=== PATIENT | male | born 1955 | race Caucasian/White ===

== ENCOUNTER 2021-03-02 09:18 | Emergency (ER) | payer OTHER ==
--- NOTE | 2021-03-02 09:56 | EDM.PDOC ---
ED HPI GENERAL MEDICAL PROBLEM - General Chief Complaint: Lower Extremity Injury/Pain Stated Complaint: [id number] SWOLLEN LEFT LEG/ANKLE Time Seen by Provider: 03/02/21 09:52 Source of Information: Reports: Patient History Limitations: Reports: No Limitations - History of Present Illness INITIAL COMMENTS - FREE TEXT/NARRATIVE: 65 y/o M c/o L ankle and calf swelling since las night. He reports no pain, injury to the area. 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 No difficulty walking, no fever, cough, chills, drugs, etoh, CP, DB, adb pn, vsion prob, extremity pain - Related Data Allergies Allergy/AdvReac Type Severity Reaction Status Date / Time No Known Allergies Allergy Verified 03/02/21 09:32 Home Meds: Home Meds Omeprazole 20 mg PO DAILY 03/02/21 [History] lisinopriL [Lisinopril] 10 mg PO DAILY 03/02/21 [History] Past Medical History HEENT History: Reports: None Cardiovascular History: Reports: Hypertension Respiratory History: Reports: None Gastrointestinal History: Reports: GERD Genitourinary History: Reports: None Musculoskeletal History: Reports: None Neurological History: Reports: None Psychiatric History: Reports: None Endocrine/Metabolic History: Reports: None Hematologic History: Reports: None Immunologic History: Reports: None Oncologic (Cancer) History: Reports: None Dermatologic History: Reports: None - Infectious Disease History Infectious Disease History: Reports: None - Past Surgical History HEENT Surgical History: Reports: Tonsillectomy Cardiovascular Surgical History: Reports: None GI Surgical History: Reports: Cholecystectomy Social & Family History - Family History Family Medical History: No Pertinent Family History - Tobacco Use Tobacco Use Status *Q: Never Tobacco User Second Hand Smoke Exposure: No - Caffeine Use Caffeine Use: Reports: None - Recreational Drug Use Recreational Drug Use: No Review of Systems - Review of Systems Review Of Systems: Comprehensive ROS is negative, except as noted in HPI. ED EXAM, GENERAL - Physical Exam Exam: See Below General Appearance: Alert, No Apparent Distress Nose: Normal Inspection, Normal Mucosa, No Blood Throat/Mouth: Normal Inspection, Normal Lips, Normal Teeth, Normal Gums, Normal Oropharynx, Normal Voice, No Airway Compromise Head: Atraumatic, Normocephalic Neck: Normal Inspection, Supple, Non-Tender, Full Range of Motion Respiratory/Chest: No Respiratory Distress, Lungs Clear, Normal Breath Sounds, No Accessory Muscle Use, Chest Non-Tender Cardiovascular: Normal Peripheral Pulses, Regular Rate, Rhythm, No Edema, No Gallop, No JVD, No Murmur, No Rub Peripheral Pulses: 2+: Posterior Tibial (L), Posterior Tibial (R), Dorsalis Pedis (L), Dorsalis Pedis (R) GI/Abdominal: Soft, Non-Tender Extremities: Other (3+ pedal edema Left ankle. 1+ edema to lower L calf) Neurological: Alert, Oriented Psychiatric: Normal Affect, Normal Mood Skin Exam: Warm, Dry, Intact, Normal Color, No Rash Course - Vital Signs Last Recorded V/S: Last Vital Signs Temp 98.3 F 03/02/21 09:28 Pulse 92 03/02/21 09:28 Resp 20 03/02/21 09:28 BP 138/89 03/02/21 09:28 Pulse Ox 98 03/02/21 09:28 - Orders/Labs/Meds Labs: Laboratory Tests 03/02/21 03/02/21 03/02/21 Range/Units 09:59 09:59 09:59 WBC 7.3 (5.0-10.0) 10^3/uL RBC 4.90 (4.6-6.2) 10^6/uL Hgb 14.7 (14.0-18.0) g/dL Hct 43.3 (40.0-54.0) % MCV 88.4 (80-100) fL MCH 30.0 (27.0-34.0) pg MCHC 33.9 (33.0-35.0) g/dL Plt Count 265 (150-450) 10^3/uL Neut % (Auto) 69.5 (42.2-75.2) % Lymph % (Auto) 21.1 (20.5-50.1) % Hendricks % (Auto) 6.8 (2-8) % Eos % (Auto) 2.2 (1.0-3.0) % Baso % (Auto) 0.4 (0.0-1.0) % D-Dimer, Quantitative 4060 H (0-400) ng/mL Sodium 141 (136-145) mmol/L Potassium 4.0 (3.5-5.1) mmol/L Chloride 104 (98-107) mmol/L Carbon Dioxide 26 (21-32) mmol/L Anion Gap 15.0 H (7-13) mEq/L BUN 19 H (7-18) mg/dL Creatinine 1.30 (0.70-1.30) mg/dL Est Cr Clr Drug Dosing 63.01 mL/min Estimated GFR (MDRD) 56 BUN/Creatinine Ratio 14.6 (No establ ref range) Glucose 115 H (70-99) mg/dL Calcium 9.1 (8.5-10.1) mg/dL Magnesium 2.3 (1.8-2.4) mg/dL Total Bilirubin 0.7 (0.2-1.0) mg/dL AST 14 L (15-37) U/L ALT 21 (16-63) U/L Alkaline Phosphatase 47 (46-116) U/L C-Reactive Protein 1.3 H (0.0-0.9) mg/dL Total Protein 7.8 (6.4-8.2) g/dL Albumin 4.1 (3.4-5.0) g/dL Globulin 3.7 Albumin/Globulin Ratio 1.1 TSH, Ultra Sensitive 2.86 (0.36-3.74) uIU/mL - Radiology Interpretation Free Text/Narrative:: Venous Doppler Left extremity left: Thrombus is present in the left femoral vein and popliteal vein. There is also thrombus in the left posterior tibial vein. See rad report. - Re-Assessments/Exams Free Text/Narrative Re-Assessment/Exam: 03/02/21 13:01 I will put the pt on Eliquis for his DVT and have him follow up with his PCP early next week. Departure - Departure Time of Disposition: 12:27 Disposition: Home, Self-Care 01 Condition: Fair Clinical Impression: DVT (deep venous thrombosis) Qualifiers: DVT location: lower extremity Affected thrombotic vein of extremity: other lower extremity vein Chronicity: acute Laterality: left Qualified Code(s): I82.492 - Acute embolism and thrombosis of other specified deep vein of left lower extremity - Discharge Information *PRESCRIPTION DRUG MONITORING PROGRAM REVIEWED*: Not Applicable *COPY OF PRESCRIPTION DRUG MONITORING REPORT IN PATIENT [place]: Not Applicable Instructions: Deep Vein Thrombosis Forms: ED Department Discharge Additional Instructions: RX: Eliquis Follow up with your primary care facility on Thursday. Use Tylenol for pain as needed. If any new symptoms or concerns develop contact your primary care facility or return to the ER. Sepsis Event Note (ED) - Evaluation Sepsis Screening Result: No Definite Risk - Focused Exam Vital Signs: Vital Signs Temp Pulse Resp BP Pulse Ox 03/02/21 09:28 98.3 F 92 20 138/89 98
--- NOTE | 2021-03-02 13:03 | US ---
PROCEDURE INFORMATION: Exam: US Duplex Left Lower Extremity Veins, Limited Exam date and time: 03/02/2021 11:07 AM Age: 65 years old Clinical indication: Swelling (edema) of limb; Lower extremity, left; Patient HX: Left leg swelling x 24 hours, no trauma or other medical history. ; Additional info: Left leg swelling elevated d dimer TECHNIQUE: Imaging protocol: Real-time Duplex ultrasound of the Left Lower Extremity with 2-D gates scale, color Doppler flow and spectral waveform analysis with image documentation. Limited exam focused on the left lower extremity veins. COMPARISON: No relevant prior studies available. FINDINGS: Left deep veins: Thrombus is present in the left femoral vein and popliteal vein. There is also thrombus in the left posterior tibial vein. The left common femoral vein is patent. Left superficial veins: Unremarkable. Saphenofemoral junction is patent without thrombus. Soft tissues: Unremarkable. IMPRESSION: Thrombus is present in the left femoral vein and popliteal vein. There is also thrombus in the left posterior tibial vein. These findings were discussed with Deni Joaquin at 2:00 p.m. EST.
== END 2021-03-02 13:12 | disposition home or self-care (01) ==
LOC: DL.ED 09:18
DX: I82.432 Acute embolism and thrombosis of left popliteal vein (principal); I82.412 Acute embolism and thrombosis of left femoral vein; I82.442 Acute embolism and thrombosis of left tibial vein; I10 Essential (primary) hypertension; K21.9 Gastro-esophageal reflux disease without esophagitis; Z79.899 Other long term (current) drug therapy
CPT/HCPCS: 36415; 80053; 83735; 84443; 85025; 85379; 86140; 93971; 99284-25

== ENCOUNTER 2023-01-28 06:32 | Day surgery (SDC) | payer MEDICARE, OTHER ==
[~2023-01-28 06:32] MED LIST: Dextrose 5%-0.45% NaCl 1,000 ML IV SCH
[2023-01-28] MEDS ORDERED: fentaNYL 100 MCG/2 ML SDV IV ONE ×5 (06:33→07:43)
[2023-01-28] MEDS ORDERED: Midazolam 1 MG/ML 2 ML SDV IV ONE ×7 (06:33→07:40)
[2023-01-28] MEDS ORDERED: fentaNYL 100 MCG/2 ML SDV ONE (06:51)
[2023-01-28] MEDS ORDERED: Midazolam 1 MG/ML 2 ML SDV ONE (06:51)
== END 2023-01-28 09:07 | disposition home or self-care (01) ==
LOC: DL.ENDO 06:32
PROVIDERS: ATTEND Internal Medicine Gastroenterology
DX: Z12.11 Encounter for screening for malignant neoplasm of colon (principal); K57.30 Diverticulosis of large intestine without perforation or abscess without bleeding; K21.9 Gastro-esophageal reflux disease without esophagitis; I10 Essential (primary) hypertension; E78.00 Pure hypercholesterolemia, unspecified; G47.33 Obstructive sleep apnea (adult) (pediatric); E66.09 Other obesity due to excess calories; Z86.718 Personal history of other venous thrombosis and embolism; Z86.010 Personal history of colon polyps; Z83.71 Family history of colonic polyps; Z90.49 Acquired absence of other specified parts of digestive tract; Z98.890 Other specified postprocedural states; Z68.30 Body mass index [BMI] 30.0-30.9, adult
CPT/HCPCS: J2250; J3010; J7042

== ENCOUNTER 2024-02-06 09:11 | Emergency (ER) | payer MEDICARE, OTHER | END 2024-02-06 10:39 | disposition home or self-care (01) | LOC: DL.ED 09:11 | DX: T18.128A Food in esophagus causing other injury, initial encounter (principal); I10 Essential (primary) hypertension; Z90.49 Acquired absence of other specified parts of digestive tract; Z79.899 Other long term (current) drug therapy; W44.F3XA Food entering into or through a natural orifice, initial encounter | CPT/HCPCS: 71250; 99283 ==